=== PATIENT | male | born 1990 | race Two or more races ===

== ENCOUNTER 2018-03-18 18:33 | Emergency (ER) | payer SELFPAY ==
[2018-03-18] MEDS: IV NORMAL SALINE 1000ML BAG 1,000 ML IV (20:01)
[2018-03-18 20:09] LABS: ADD MAN DIFF? NO
[2018-03-18 20:13] LABS: BASO # 0.1 x10^3/uL (0.0-0.2); BASO % 1 % (0-3); EOS # 0.1 x10^3/uL (0.0-0.7); EOS % 1 % (0-3); HEMATOCRIT 47.9 % (39.0-53.0); HEMOGLOBIN 16.9 g/dL (13.0-17.5); LYMPH # 2.6 x10^3/uL (1.0-4.8); LYMPH % 27 % (24-48); MEAN CORPUSCULAR HEMOGLOBIN 33 pg (25-35); MEAN CORPUSCULAR HGB CONC 35 g/dL (31-37); MEAN CORPUSCULAR VOLUME 93 fL (79-100); MONO % 11 % (0-9); NEUT % 61 % (31-73); PLATELET COUNT 250 x10^3/uL (140-400); RED BLOOD COUNT 5.13 x10^6/uL (4.30-5.70); RED CELL DISTRIBUTION WIDTH 12.7 % (11.5-14.5); WHITE BLOOD COUNT 9.8 x10^3/uL (4.0-11.0)
[2018-03-18 20:27] LABS: ANION GAP 9 (6-14); BILIRUBIN,URINE NEGATIVE (NEG); BLOOD UREA NITROGEN 18 mg/dL (8-26); BUN/CREATININE RATIO 16 (6-20); CALCIUM 9.9 mg/dL (8.5-10.1); CARBON DIOXIDE 26 mmol/L (21-32); CHLORIDE 100 mmol/L (98-107); CLARITY,URINE CLEAR; COLOR,URINE YELLOW; CREATININE 1.1 mg/dL (0.7-1.3); GFR 80.3; GLUCOSE 115 mg/dL (70-99); GLUCOSE,URINE NEGATIVE (NEG); NITRITE,URINE NEGATIVE (NEG); PROTEIN,URINE NEGATIVE (NEG-TRACE); SODIUM 135 mmol/L (136-145); UROBILINOGEN,URINE 0.2 mg/dL (0.2 mg/dL)
[2018-03-18 20:32] LABS: BARBITURATES NEG (NEG); BENZODIAZEPINES NEG (NEG); CANNABINOIDS NEG (NEG); COCAINE NEG (NEG); METHADONE NEG (NEG); OPIATES NEG (NEG); PHENCYCLIDINE NEG (NEG)
[2018-03-18 20:33] LABS: ALBUMIN 4.4 g/dL (3.4-5.0); ALK PHOS 76 U/L (46-116); ALT (SGPT) 27 U/L (16-63); AMPHETAMINE/METHAMPHETAMINE POS (NEG); AST (SGOT) 15 U/L (15-37); BACTERIA,URINE 0 /HPF (0-FEW); ETHANOL, URINE NEG (NEG); RBC,URINE 0 /HPF (0-2); SQUAMOUS EPITHELIAL CELL,UR OCC /LPF; TOTAL BILIRUBIN 1.1 mg/dL (0.2-1.0); TOTAL PROTEIN 8.9 g/dL (6.4-8.2); WBC,URINE RARE /HPF (0-4)
[2018-03-18 20:39] LABS: CKMB INDEX 0.9 % (0-4); CKMB MASS 1.1 ng/mL (0.0-3.6); CREATINE KINASE 129 U/L (39-308)
[2018-03-18 20:42] LABS: TROPONINI < 0.017 ng/mL (0.000-0.055)
== END 2018-03-18 21:41 | disposition home or self-care (01) ==
LOC: ER 21:41
DX: R07.89 Other chest pain (principal); F15.10 Other stimulant abuse, uncomplicated
CPT/HCPCS: 36415; 71045; 80053; 80307; 81001; 82553; 84484; 85025; 93005; 99285-25; J2060; J7030